=== PATIENT | female | born 2000 | race African-American/Black ===

== ENCOUNTER → 2020-03-10 | Outpatient (CLI) | payer OTHER ==
--- NOTE | 2020-03-11 03:21 | KCIC ---
XR THORACIC SPINE 3VIEWS Clinical Indication: Reason: LBP, thoracic pain. Pain with flexion and extension Comparison: None. Findings: The vertebral body height and alignment are maintained. No significant disc space narrowing. No acute fracture is seen. Vertebral stripes are smooth. Visualized lungs are clear. Cardiac size is normal. There is straighten ing and slight reversal of the cervical spine on the swimmer's view. The prevertebral soft tissues ar e normal. Posterior ribs are intact. IMPRESSION: Normal thoracic spine. Electronically signed by: Kirk Velazco MD (03/11/2020 3:19 AM) [facility]
--- NOTE | 2020-03-11 03:30 | KCIC ---
XR CERVICAL SPINE COMPLETE WITH FLEXION AND EXTENSION VIEWS Clinical Indication: Reason: LBP, thoracic pain. Pain with flexion and extension. Comparison: None. Findings: Standing AP, bilateral oblique, and neutral, flexion, and extension lateral views. Coned lumbosacral lateral view. The sacroiliac joints are symmetric. A pars defect is not identified on the oblique views. There is p robable transitional lumbosacral anatomy. L5 is probably partially sacralized. There is disc space na rrowing of L5/S1. The vertebral body height is maintained. The other disc spaces are maintained. The sacrum and coccyx alignment is maintained on the lateral view. There is minimal grade 1 retrolisthesi s of L4 on L5. This does not definitely change on flexion and extension views. The alignment is other webb maintained. IMPRESSION: 1. No acute bone abnormality. 2. No evidence of dynamic instability. Electronically signed by: Kirk Velazco MD (03/11/2020 3:28 AM) [facility]
--- NOTE | 2020-03-11 13:53 | KCIC ---
XR CERVICAL SPINE COMPLETE WITH FLEXION AND EXTENSION VIEWS Clinical Indication: Reason: LBP, thoracic pain. Pain with flexion and extension. Comparison: None. Findings: Standing AP, bilateral oblique, and neutral, flexion, and extension lateral views. Coned lumbosacral lateral view. The sacroiliac joints are symmetric. A pars defect is not identified on the oblique views. There is probable transitional lumbosacral anatomy. L5 is probably partially sacralized. There is disc space narrowing of L5/S1. The vertebral body height is maintained. The other disc spaces are maintained. The sacrum and coccyx alignment is maintained on the lateral view. There is minimal grade 1 retrolisthesis of L4 on L5. This does not definitely change on flexion and extension views. The alignment is otherwise maintained. IMPRESSION: 1. No acute bone abnormality. 2. No evidence of dynamic instability. MTDD
== END ==
LOC: KCIC 14:51
PROVIDERS: ATTEND Family Medicine
DX: M54.6 Pain in thoracic spine (principal); M54.5 Low back pain; M62.81 Muscle weakness (generalized)
CPT/HCPCS: 72052; 72072; 72114